=== PATIENT | male | born 1945 | race Caucasian/White ===

== ENCOUNTER 2021-03-06 08:50 | Outpatient (NON) | payer MEDICARE, SELFPAY | END 2021-03-06 08:51 | disposition home or self-care (01) | PROVIDERS: Visit Provider Specialist | DX: L57.0 Actinic keratosis (principal); C44.41 Basal cell carcinoma of skin of scalp and neck | CPT/HCPCS: 88305 ==

== ENCOUNTER 2024-08-20 09:51 | Outpatient (CLI) | payer MEDICARE, SELFPAY | END 2024-08-20 09:52 | disposition home or self-care (01) | LOC: ANHAUDIO 09:54 | PROVIDERS: PCP Otolaryngology; Visit Provider Otolaryngology | DX: H69.90 Unspecified Eustachian tube disorder, unspecified ear (principal); J30.2 Other seasonal allergic rhinitis; H90.3 Sensorineural hearing loss, bilateral | CPT/HCPCS: 92557; 92567 ==